=== PATIENT | female | born 1960 | race Caucasian/White ===

== ENCOUNTER 2017-06-12 17:21 | Emergency (ER) | payer OTHER ==
[~2017-06-12] VITALS: Ht 165.1 cm; Wt 72.6 kg
[~2017-06-12 17:21] MED LIST: ADULT LOW DOSE81 MG PO; AMOXICILLIN 50500 M1 PO; BIOTIN1 MG PO; CIPROFLOXACIN500 M1 PO; FLEXERIL PO; ILOTYCIN1 GM OP; NORCO 5-325 TA1 EACH PO; ONDANSETRON HCL4 M2 PO; TREXIMET 85-501 EACH; TREXIMET 85-501 EACH PO
== END 2017-06-12 20:39 | disposition home or self-care (01) ==
LOC: ER 17:21
DX: G43.909 Migraine, unspecified, not intractable, without status migrainosus (principal); Z88.1 Allergy status to other antibiotic agents